=== PATIENT | female | born 1965 | race Caucasian/White ===

== ENCOUNTER 2019-01-17 00:16 | Inpatient (IN) ==
[2019-01-18] MEDS ORDERED: Acetaminophen 325 MG TABLET PO PRN ×2 (00:26→04:15)
[2019-01-18] MEDS ORDERED: Naloxone 0.4 MG/ML INJ IVP PRN ×2 (00:26→04:15)
[2019-01-18] MEDS ORDERED: *HR* OxyCODONE Immed Rel 5 MG TABLET PO PRN ×3 (00:26→04:15)
[2019-01-18] MEDS ORDERED: 0.9 % Sodium Chloride 1,000 ML IVC SCH ×2 (00:30→04:15)
--- NOTE | 2019-01-18 00:32 | Internal Med History&Physical ---
<ColladoTrudiLj Lucia - Last Filed: 01/18/19 00:30> Date of Encounter: 01/18/19 Time of Encounter: 00:30 Internal Medicine - H&P: HPI Chief complaint: Kidney stone Admitted From: Hospital to Hospital Transfer Plans for Post Hospital Care: Home History of present illness: Ms. Hoyos is a 53 year old female with a past medical history of type 2 diabetes mellitus, calcium oxalate kidney stones, hypertension, fibromyalgia, status post ablation for PSVT. Surgical history of partial hysterectomy and cholecystect jayna. She was transferred from [facility] to [facility] ICU. She states that yesterday afternoon she began having left-sided flank pain radiating to the suprapubic region, associated with nausea and vomiting, fever and chills. She denies any associated dysuria or urinary frequency or hesitancy. She denies chest pain or shortness of breath, lightheadedness or dizziness, weakness or falls. She presented to the [place] ER where CT scan demonstrated left obstructing ureterolithiasis just past the UPJ, hydroureter and hydronephrosis, with perinephric stranding. Labs demonstrated leukocytosis of 23, elevated lactic acid of 2.2, urine positive for leukocyte esterase and white blood cells, vitals demonstrated fever of 102 and tachycardia in the 130s. She was initially treated with morphine for pain control, Zofran for nausea control, 2 g IV Rocephin and 2 L normal saline. She was transferred to [facility] ICU in stable condition. Internal Medicine - H&P: Meds Allergy/AdvReac Type Severity Reaction Status Date / Time No Known Allergies Allergy Verified 01/18/19 01:06 All Systems PM: A 10-system review of systems was performed and is negative for pertinent findi ngs except as documented above in the HPI. - Constitutional General appearance: Present: A&O X 3, no acute distress, answers questions appropriately Exam: Alert and oriented, normal affect, no acute distress Cranial nerves II through XII intact, no focal deficits Pupils equal and reactive to light, extraocular movements intact Heart in tachycardic rate and regular rhythm without murmur or gallop auscultated Lungs clear to auscultation bilaterally without adventitial noted Abdomen soft and nontender with normal bowel sounds noted, mild left flank tenderness Motor 5/5 in all 4 extremities, sensation intact, 1+ bilateral lower extremity pitting edema Skin warm and dry without rash, bruising, bleeding noted - Assessment and Plan (1) Sepsis Current Visit: Yes Status: Acute Assessment and plan: Patient was transferred from [place] for possible sepsis secondary to pyelonephritis tertiary to ureterolithiasis She did meet SIRS criteria of tachycardia and fever with imaging concerning for pyelonephritis Prior to transfer she was given 2 g IV Rocephin and 2 L IV fluid, Zofran for nausea control and morphine for pain control On arrival the patient was afebrile, mildly tachycardic, otherwise hemodynami pebbles stable and in no acute distress Urology is consulting and planning to take the patient to the OR immediately for ureteral stenting We will continue normal saline fluids, Zofran for nausea control and morphine for pain control Repeat urine with reflex culture is pending, patient is already covered with IV Rocephin After surgery patient can likely be transferred to general medical floor Qualifiers: Sepsis type: sepsis due to unspecified organism Qualified Code(s): A41.9 - Sepsis, unspecified organism (2) Pyelonephritis Current Visit: Yes Status: Acute Assessment and plan: As above (3) Ureterolithiasis Current Visit: Yes Status: Acute Assessment and plan: As above (4) Diabetes Current Visit: No Status: Chronic Assessment and plan: Every 6 hours Accu-Cheks and low-dose sliding scale insulin correction protocol This can be changed to before meals at bedtime once the patient is given a diabetic diet Qualifiers: Diabetes mellitus type: type 2 Diabetes mellitus prison insulin use: without moth exterminator use Diabetes mellitus complication status: without com plication Qualified Code(s): E11.9 - Type 2 diabetes mellitus without com plications (5) DVT prophylaxis Current Visit: Yes Status: Acute Assessment and plan: 5000 units subcutaneous heparin every 8 hours - Time Spent With Patient Total time spent is greater than 50% in coordination of care (as documented) at patient's floor/unit and/or counseling patient: GrahamReyna Fair - Last Filed: 01/18/19 02:51> Date of Encounter: 01/18/19 Past Med Surg Social Fam HX - Family History Mother Age: 78 Living Status: Age at : 78 Cause of : lung CA Hx Family Cardiac Disorders: No Hx Family Respiratory Disorders: No Hx Family Cancer: Yes Father Age: 69 Living Status: Age at : 69 Cause of : colon CA Hx Family Cancer: Yes Daughter Living Status: Still Living Hx Family Genitourinary Disorders: Yes (Kidney stones) All Systems PM: A 10-system review of systems was performed and is negative for pertinent findings except as documented above in the HPI. - Constitutional Vitals: Temp Pulse Resp BP Pulse Ox 98.9 F 95 17 127/73 95 01/18/19 02:15 01/18/19 02:15 01/18/19 02:15 01/18/19 02:15 01/18/19 02:15 Internal Med - H&P Results - Labs CBC & Chem 7: 01/18/19 01:11 01/18/19 01:11 Labs: Short CBC 01/18/19 Range/Units 01:11 WBC 24.9 H (4.3-11.1) K/mcL Hgb 11.1 L (11.5-15.4) g/dL Hct 35.1 L (35.3-44.9) % Plt Count 228 (140-400) K/mcL Neutrophils # 20.4 H (1.6-8.9) K/mcL BMP 01/18/19 01:11 Sodium 138 Potassium 3.5 Chloride 104 Carbon Dioxide 25 BUN 12 Creatinine 0.69 Glucose 153 H Calcium 9.1 - Time Spent With Patient Total time spent is greater than 50% in coordination of care (as documented) at patient's floor/unit and/or counseling patient: - Attending Attestation I performed a history and physical exam of the patient and discussed management with the resident. I reviewed the resident's note and agree with the documented findings and plan of care. Family history reviewed and found non-contributory. Keke Hoyos is a 53-year-old obese woman with diabetes and recurrent kidney stones who presented to [facility] emergency room with the complaint of worsening abdominal and flank pain with radiation to her groin found to have an obstructive stone causing hydronephrosis, notable leukocytosis and tachycardia consistent with sepsis syndrome. She was transferred to our medical unit for further care and evaluation. She was seen immediately by urology who took her to the operating room for stent placement. She has remained clinically and hemodynamically stable. We will continue fluid resuscitation, analgesics as needed, empiric antibiotics should be continued after urine and blood cultures are sent. Transfer to medical floor. MARIAMA TREVINO.
--- NOTE | 2019-01-18 00:35 | Anesthesia Evaluation PreOp ---
Date of Encounter: 01/18/19 Time of Encounter: 00:33 - Past History Planned Operation: Cystoscopy, Insertuion Left Ureteral Stent Cardiac History: HTN, Arrhythmia (s/p ablation for SVT 10 years ago) Pulmonary History: Denies Any Significant HX FASHION MARKETER History: Denies Any Significant HX Other Medical History: Renal (Hydronephrosis), Diabetes Type II, GERD (Hiatal Hernia), Other (Fibromyalgia, [place] BMI-49) Anesthesia History: No Prior Anesthetic Complications, Past Anesthesia (Hyst) : No Alcohol Use: none Drug use: none Medications and Allergies Allergy/AdvReac Type Severity Reaction Status Date / Time No Known Allergies Allergy Verified 01/18/19 01:06 - Meds/Allergy Pre-op Review Medications Reviewed: Yes Allergies Reviewed: Yes Beta Blockers on Current Med List: Yes If Beta Blockers taken, Date/Time (Last Dose taken): Last Night (01/17/2019) Anesthesia Results - Labs Labs demonstrated leukocytosis of 23, elevated lactic acid of 2.2, urine positive for leukocyte esterase and white blood cells, vitals demonstrated fever of 102 and tachycardia in the 130s Anesthesia Exam NPO (# of Hours): > 8 hrs Pain Scale: 0 Pain Scale Used: Numeric (1 - 10) - HEENT Pupil (Motor): Pupils equal, EOMI Mallampati: I Teeth: Normal Oral Opening: Greater than 3 - FASHION MARKETER LOC: Oriented FASHION MARKETER Motor: Normal RUE, Normal LUE, Normal RLE, Normal LLE, Normal Face FASHION MARKETER Sensory: Normal: RUE, LUE, RLE, LLE, Face - Cardiac Rhythm: Regular Murmur: None JVD: No Carotid Bruit: No - Pulmonary Breath Sounds: bilateral Clear Respiratory Effort: Symmetrical Anesthesia Assess/Plan ASA Score: 3 Level of consciousness: Cooperative Anesthetic Plan: General Autologous Blood: Yes Monitoring Plan: Standard Monitors Recovery Plan: PACU
[2019-01-18] MEDS ORDERED: *HR* FentaNYL (PF) 100 MCG/2 ML VIAL ONE (00:42)
[2019-01-18] MEDS ORDERED: Ondansetron 4 MG/2 ML VIAL ONE (00:43)
[2019-01-18] MEDS ORDERED: *HR* Propofol 200 MG/20 ML VIAL IVP ONE (00:43)
[2019-01-18] MEDS ORDERED: *HR* Rocuronium Bromide 50 MG/5 ML VIAL ONE (00:43)
[2019-01-18] MEDS ORDERED: Ketorolac 30 MG/ML VIAL ONE (00:43)
[2019-01-18] MEDS ORDERED: Lidocaine -MPF 2% 2 ML VIAL ONE (00:43)
[2019-01-18] MEDS ORDERED: Dexamethasone 4 MG/ML VIAL ONE (00:43)
[2019-01-18] MEDS ORDERED: *HR* Succinylcholine 200 MG/10 ML VIAL IVP ONE (00:43)
[2019-01-18] MEDS ORDERED: Dextrose Gel 15 GM/37.5 ML TUBE PO PRN ×4 (00:49→04:15)
[2019-01-18] MEDS ORDERED: D5% in Water 1,000 ML IVC PRN ×2 (00:49→04:15)
[2019-01-18] MEDS ORDERED: *HR* Dextrose 50 % in Water (Syg) 50 ML SYRINGE IVP PRN ×2 (00:49→04:15)
--- NOTE | 2019-01-18 00:54 | Urology - Consult Note ---
Date of Encounter: 01/18/19 Time of Encounter: 00:52 - Assessment and Plan (1) Hydronephrosis Current Visit: Yes Status: Acute Assessment and plan: Secondary to 6.5 x 4 mm left proximal ureteral calculus. Pain symptomatically with intermittent pain nausea and fevers. Found to have elevated white count of 22 with lactated 2.2. Discussed indications for urgent urinary diversion. Plan: Urgent urinary diversion via ureteral stent placement Qualifiers: Hydronephrosis type: with ureteral calculous obstruction Qualified Code(s): N13.2 - Hydronephrosis with renal and ureteral calculous obstruction (2) Sepsis Current Visit: Yes Status: Acute Assessment and plan: Positive UA, white count 22, lactate 2.2, fevers up to 102 in setting of left proximal ureteral calculus with hydronephrosis. Given Rocephin at outside facility prior to transfer. Plan: Urgent urinary diversion by stent placement. Antibiotic management as per ICU staff. Qualifiers: Sepsis type: sepsis due to unspecified organism Qualified Code(s): A41.9 - Sepsis, unspecified organism (3) Ureterolithiasis Current Visit: Yes Status: Acute Assessment and plan: 6.5 x 4 left proximal ureteral calculus. Unsafe to address stone definitively at this time due to active UTI with emerging urosepsis. Plan: Urgent urinary diversion. Staged definitive address of stone once active infection resolved. (4) Nephrolithiasis Current Visit: Yes Status: Acute Assessment and plan: History of 2 prior stones 1 treated with ureteroscopy and the second with lithotripsy. Patient now transferred from outside facility secondary to urosepsis from obstructing left proximal ureteral calculus. CT images reviewed and interpreted independently and show multiple additional 1-2 mm stones in the left kidney as well as a 1-2 mm stone in the right kidney. Discussed findings with patient and indications for metabolic evaluation for future stone prevention. Plan: 48 hour urine will be arranged as outpatient. Urology CN:HPI Consult date: 01/18/19 Requesting physician: Reyna Fair History of present illness: Ms. Hoyos is a 53 year old female with a past medical history of type 2 diabetes mellitus, calcium oxalate kidney stones, hypertension, fibromyalgia, status post ablation for PSVT. Surgical history of partial hysterectomy and cholecystectomy. She was transferred from [facility] to [facility] ICU. She states that yesterday afternoon she began having left- sided flank pain radiating to the suprapubic region, associated with nausea and vomiting, fever and chills. She denies any associated dysuria or urinary frequency or hesitancy. She denies chest pain or shortness of breath, lightheadedness or dizziness, weakness or falls. She presented to the [place] ER where CT scan demonstrated left obstructing ureterolithiasis just past the UPJ, hydroureter and hydronephrosis, with perinephric stranding. Labs demonstrated leukocytosis of 23, elevated lactic acid of 2.2, urine positive for leukocyte esterase and white blood cells, vitals demonstrated fever of 102 and tachycardia in the 130s. She was initially treated with morphine for pain control, Zofran for nausea control, 2 g IV Rocephin and 2 L normal saline. She was transferred to [facility] ICU in stable condition. Discussed transfer with outside facility ER attending as well as patient via phone. Discussed need for urgent urinary diversion due to emerging urosepsis in the setting of obstructing left ureteral calculus. Past Med Surg Social Fam HX - Past Medical History Medical history: diabetes, hypertension - Past Surgical History Surgical History: ureteral stent - Social History Alcohol use: none Drug use: none - Family History Daughter Living Status: Still Living Hx Family Genitourinary Disorders: Yes (Kidney stones) Review of Systems - Constitutional chills, fever(s) - EENT Nose, mouth and throat: no dry mouth, no sore throat - Cardiovascular no chest pain, no diaphoresis - Respiratory no cough, no dyspnea - Gastrointestinal abdominal pain, nausea - Genitourinary Genitourinary: no dysuria, no hematuria - Musculoskeletal no muscle weakness, no numbness - Integumentary no lesions, no rash - Neurological no confusion, no sensory deficit - Psychiatric no anxiety, no confusion - Hematologic/Lymphatic no easy bleeding, no easy bruising - Allergic/Immunologic no throat swelling, no wheezing Exam - General physical appearance Present: well developed, well nourished, no distress - Eyes Present: normal ocular movement - ENT Present: normal nares, normal mucosa - Neck Present: trachea midline - Respiratory Present: normal respiratory effort - Abdomen Abdomen: Present: non tender - Integumentary Present: no rash, no growths, no abnormal pigmentation - Neurologic Present: normal coordination - Musculoskeletal Present: other (Normal posture) Urology Results - Labs All other labs normal. - Imaging CT scan - abdomen: image reviewed CT scan - pelvis: image reviewed (CT images reviewed and interpreted independently.) Consult Discharge Plan - Plan Referrals: Lissa Helm, CIRCUS TRAINER [Primary Care Provider] -
[2019-01-18] MEDS ORDERED: *HR* HYDROmorphone (PF) 1 MG/ML SYRINGE IVP PRN (00:55)
[2019-01-18] MEDS ORDERED: *HR* Promethazine 25 MG/ML VIAL IVP PRN (00:55)
[2019-01-18] MEDS ORDERED: Ondansetron 4 MG/2 ML VIAL IVP ONE (00:55)
[2019-01-18 01:40] LABS: Basophils # 0.1 K/mcL (0.0-0.2); Basophils % 0.4 %; Eosinophils # 0.1 K/mcL (0.0-0.6); Eosinophils % 0.6 %; Hematocrit 35.1 % (35.3-44.9); Hemoglobin 11.1 g/dL (11.5-15.4); Immature Granulocytes % 0.6 % (0-4); Lymphocytes # 2.4 K/mcL (0.6-4.6); Lymphocytes % 9.7 %; Mean Corpuscular HGB Conc 31.6 g/dL (31.6-35.5); Mean Corpuscular Hemoglobin 28.7 pg (28.0-33.3); Mean Corpuscular Volume 90.7 fL (83.0-100.0); Mean Platelet Volume 9.5 fL (9.4-12.4); Monocytes # 1.7 K/mcL (0.0-1.3); Neutrophils # 20.4 K/mcL (1.6-8.9); Platelet Count 228 K/mcL (140-400); Red Blood Count 3.87 M/mcL (3.82-4.97); Red Cell Distribution Width 13.4 % (11.5-14.5); Segmented Neutrophils % 81.7 %; White Blood Count 24.9 K/mcL (4.3-11.1)
[2019-01-18 01:41] LABS: BUN/Creatinine Ratio 17 (6-26); Blood Urea Nitrogen 12 mg/dL (6-20); Calcium 9.1 mg/dL (8.6-10.3); Carbon Dioxide 25 mEq/L (23-29); Chloride 104 mEq/L (98-107); Glucose 153 mg/dL (70-105); Osmolality,Calculated 289 (280-300); Potassium 3.5 mEq/L (3.5-5.1); Sodium 138 mEq/L (136-145); eGFR For African Americans > 60 (> 60); eGFR For Non-African Americans > 60 (> 60)
[2019-01-18 01:52] LABS: INR 1.1; Prothrombin Time 12.4 Seconds (9.4-12.1)
--- NOTE | 2019-01-18 02:04 | Operative Note ---
Date of procedure: 01/18/19 Pre-op diagnosis: Left hydronephrosis Post-op diagnosis: same Procedure: Cystoscopy, left retrograde ureteropyelography with intraoperative interpretation of radiographic images in real time by surgeon to facilitate procedure, left ureteral double-J stent placement Implants: 4.8 x 24 left double-J stent Complications: None Anesthesia: GETA Surgeon: Rashid Singleton Was there an data analysis assistant present: No Estimated blood loss (cc): 0 Specimen: none Condition: stable Disposition: PACU Procedure in Detail: The patient was brought to the operating theater placed on table in supine position. The patient identified by name and administered a general anesthetic. The patient placed in dorsal lithotomy prepped and draped in normal sterile fashion. A cystoscope was inserted into the urethral meatus and advanced toward the bladder under direct visualization. There were no mucosal abnormalities of the bladder or urethra. An open-ended catheter was placed the tip of the left ureteral orifice and with gentle injection of contrast a retrograde pyelogram was performed. Intraoperative interpretation of radiographic images in real time by surgeon revealed suggestion of filling defect in the proximal ureter with mild to moderate [place] above this level consistent with CT finding of proximal ureteral stone. Based upon this finding along with the patient's active UTI and emerging urosepsis stent placement was indicated. Under fluoroscopic guidance a Glidewire was advanced into the left renal pelvis. Over the Glidewire a 4.8 x 24 left double-J stent was advanced. Once the stent was felt to be in good position the Glidewire was removed. Proximal distal ends of the stent were confirmed in good position fluoroscopically. The patient's bladder was drained of irrigant and this ended the operative procedure.
[2019-01-18] MEDS ORDERED: Albuterol 2.5 MG/3 ML NEBULIZER ONE (02:26)
[2019-01-18 04:52] LABS: Basophils # 0.1 K/mcL (0.0-0.2); Basophils % 0.4 %; Eosinophils # 0.1 K/mcL (0.0-0.6); Eosinophils % 0.4 %; Hematocrit 37.6 % (35.3-44.9); Hemoglobin 11.9 g/dL (11.5-15.4); Immature Granulocytes % 0.8 % (0-4); Lymphocytes # 1.8 K/mcL (0.6-4.6); Lymphocytes % 7.7 %; Mean Corpuscular HGB Conc 31.6 g/dL (31.6-35.5); Mean Corpuscular Hemoglobin 28.9 pg (28.0-33.3); Mean Corpuscular Volume 91.3 fL (83.0-100.0); Mean Platelet Volume 9.5 fL (9.4-12.4); Monocytes # 1.1 K/mcL (0.0-1.3); Monocytes % 4.5 %; Neutrophils # 20.5 K/mcL (1.6-8.9); Platelet Count 236 K/mcL (140-400); Red Blood Count 4.12 M/mcL (3.82-4.97); Red Cell Distribution Width 13.3 % (11.5-14.5); Segmented Neutrophils % 86.2 %; White Blood Count 23.8 K/mcL (4.3-11.1)
[2019-01-18 05:13] LABS: BUN/Creatinine Ratio 17 (6-26); Blood Urea Nitrogen 12 mg/dL (6-20); Calcium 9.5 mg/dL (8.6-10.3); Carbon Dioxide 26 mEq/L (23-29); Chloride 104 mEq/L (98-107); Glucose 220 mg/dL (70-105); Osmolality,Calculated 295 (280-300); Potassium 3.9 mEq/L (3.5-5.1); Sodium 139 mEq/L (136-145); eGFR For African Americans > 60 (> 60); eGFR For Non-African Americans > 60 (> 60)
[2019-01-18] MEDS ORDERED: *HR* Heparin 5,000 UNIT/ML VIAL SQ SCH ×2 (06:00)
[2019-01-18] MEDS ORDERED: Insulin LISPRO 300 UNITS/3 ML VIAL SQ SCH ×4 (06:00→21:00)
[2019-01-18] MEDS ORDERED: Ondansetron 4 MG/2 ML VIAL IVP SCH ×2 (06:00)
--- NOTE | 2019-01-18 06:57 | Anesthesia Evaluation Post Op ---
Date of Encounter: 01/18/19 Time of Encounter: 06:56 - Vital Signs Vital Signs: Vital Signs/O2 Sat, Most Current Temp Pulse Resp BP Pulse Ox 98.0 F 82 16 145/83 91 01/18/19 04:38 01/18/19 05:00 01/18/19 05:00 01/18/19 03:30 01/18/19 05:00 - Lungs Lungs: Clear Ascult./Percussion - Airway Airway: Non-obstructed - Cardiovascular Regular Rate - Mental Status Mental Status: Alert & Oriented, Answers Appropriately - Pain Pain Scale: 0 Pain Scale used: Numeric (1 - 10) - Nausea Vomiting Nausea Vomiting: Not Present - Hydration Hydration: Tolerates oral liquids, Has not voided - Discharge PostOp Status: Transfer Patient to floor
--- NOTE | 2019-01-18 07:24 | Urology Progress Note ---
Date of Encounter: 01/18/19 Time of Encounter: 07:21 - Assessment and Plan (1) Hydronephrosis Current Visit: Yes Status: Acute Assessment and plan: Doing well s/p stent placement for obstructing left ureteral calculus with hydronephrosis, uti and urosepsis. Current AF, VSS, WBC 23. Tolerating stent well. Plan: My office will arrange for outpatient f/u for definitive management of ureteral calculus once infection is resolved. Qualifiers: Hydronephrosis type: with ureteral calculous obstruction Qualified Code(s): N13.2 - Hydronephrosis with renal and ureteral calculous obstruction (2) Sepsis Current Visit: Yes Status: Acute Qualifiers: Sepsis type: sepsis due to unspecified organism Qualified Code(s): A41.9 - Sepsis, unspecified organism (3) Ureterolithiasis Current Visit: Yes Status: Acute (4) Nephrolithiasis Current Visit: Yes Status: Acute Objective Initial Vital Signs Temp Pulse Resp BP Pulse Ox 98.5 F 105 18 120/73 95 01/18/19 00:05 01/18/19 00:05 01/18/19 00:05 01/18/19 00:05 01/18/19 00:05 - Labs 01/18/19 04:30 01/18/19 04:30 Diabetes panel 01/18/19 01/18/19 Range/Units 01:11 04:30 Sodium 138 139 (136-145) mEq/L Potassium 3.5 3.9 (3.5-5.1) mEq/L Chloride 104 104 (98-107) mEq/L Carbon Dioxide 25 26 (23-29) mEq/L BUN 12 12 (6-20) mg/dL Creatinine 0.69 0.71 (0.60-1.20) mg/dL Glucose 153 H 220 H (70-105) mg/dL Calcium 9.1 9.5 (8.6-10.3) mg/dL Calcium panel 01/18/19 01/18/19 Range/Units 01:11 04:30 Calcium 9.1 9.5 (8.6-10.3) mg/dL Pituitary panel 01/18/19 01/18/19 Range/Units 01:11 04:30 Sodium 138 139 (136-145) mEq/L Potassium 3.5 3.9 (3.5-5.1) mEq/L Chloride 104 104 (98-107) mEq/L Carbon Dioxide 25 26 (23-29) mEq/L BUN 12 12 (6-20) mg/dL Creatinine 0.69 0.71 (0.60-1.20) mg/dL Glucose 153 H 220 H (70-105) mg/dL Calcium 9.1 9.5 (8.6-10.3) mg/dL Adrenal panel 01/18/19 01/18/19 Range/Units 01:11 04:30 Sodium 138 139 (136-145) mEq/L Potassium 3.5 3.9 (3.5-5.1) mEq/L Chloride 104 104 (98-107) mEq/L Carbon Dioxide 25 26 (23-29) mEq/L BUN 12 12 (6-20) mg/dL Creatinine 0.69 0.71 (0.60-1.20) mg/dL Glucose 153 H 220 H (70-105) mg/dL Calcium 9.1 9.5 (8.6-10.3) mg/dL Consult Discharge Plan - Plan Referrals: Lissa Helm, MRI TECHNICIAN [Primary Care Provider] -
[2019-01-18 07:50] VITALS: BP 142/83
[2019-01-18] MEDS ORDERED: cefTRIAXone 1,000 MG in Water for inj. (sterile) 20 ML 10 ML IVPB SCH ×2 (09:00)
--- NOTE | 2019-01-18 10:01 | Discharge Summary ---
- NOTES TO OUTPATIENT PROVIDER Notes to Outpatient Provider: Complete a course of antibiotics. Follow-up with urology as outpatient Orders not resulted at time of discharge: Pending orders 01/18/19 00:29 Urinalysis Reflex Cult & Micro [URIN] Stat 01/18/19 04:30 Culture,Blood [BC] Routine Date of Encounter: 01/18/19 Time of Encounter: 08:15 - Discharge Diagnosis (1) Sepsis Priority: Primary Status: Acute Qualifiers: Sepsis type: sepsis due to unspecified organism Qualified Code(s): A41.9 - Sepsis, unspecified organism (2) Pyelonephritis Priority: Secondary Status: Acute (3) Hydronephrosis Priority: Secondary Status: Acute Qualifiers: Hydronephrosis type: with ureteral calculous obstruction Qualified Code(s): N13.2 - Hydronephrosis with renal and ureteral calculous obstruction (4) Nephrolithiasis Priority: Secondary Status: Acute (5) Diabetes Priority: Secondary Status: Chronic Qualifiers: Diabetes mellitus type: type 2 Diabetes mellitus halfway insulin use: without typist use Diabetes mellitus complication status: without complication Qualified Code(s): E11.9 - Type 2 diabetes mellitus without complications Hospital course: Ms. Hoyos is a 53 year old female with history of diabetes, nephrolithiasis, hypertension, who was admitted overnight due to sepsis secondary to L pyelonephritis and hydronephrosis from obstructing left ureterolithiasis. No end organ damage. Underwent urgent left ureteral stent placement uneventfully and with significant clinical improvement. Had leukocytosis of 25 on presentation that slightly downtrended after intervention and IV abx. She was strongly recommended to stay inpatient for monitoring given leukocytosis and pending blood culture results but pt adamantly requested to be discharged as she feels great. Informed her that this is not the ideal situation to be discharged in and also of the risk of worsening sepsis which can potentially lead to to which she verbalized understanding. However, given the clinical improvement after urological intervention and IV Rocephin, it was not completely unreasonable to discharge her home on PO Abx and would do so instead of asking her to sign out AMA to respect her wish. She is advised to return to the ED or contact Urologist if pain recurs or develops fever/chills, N/V, or flank pain. She will follow up with Urology as outpatient. Discharge discussed with: patient, nurse, documentation consultant - Time Spent with Patient Total time spent providing and/or coordinating discharge services: 33 mins. - Discharge Medications Prescriptions: New Cefdinir [Omnicef] 300 mg PO BID 10 Days #20 capsule Home Medications: Cefdinir [Omnicef] 300 mg PO BID 10 Days #20 capsule 01/18/19 [Rx] Allergies/Adverse Reactions: Allergy/AdvReac Type Severity Reaction Status Date / Time No Known Allergies Allergy Verified 01/18/19 01:06 Date of admission: 01/18/19 00:22 Primary care physician: Lissa Helm CNP - Constitutional Vitals: Temp Pulse Resp BP Pulse Ox 97.7 F 74 16 142/83 95 01/18/19 07:49 01/18/19 07:49 01/18/19 07:49 01/18/19 07:49 01/18/19 07:49 General appearance: Present: A&O X 3, no acute distress, answers questions appropriately Exam: General: Alert and oriented, not in acute distress. Cardiovascular:Normal S1 & S2, No JVD. Pulse regular. Lungs: clear to auscultation, no wheezes/rales Abdomen:Soft, non-tender, no rigidity. : No CVA tenderness Extremities:No deformity or swelling Neurological:Normal cognition and motor skills. Non-focal - Patient Status Disposition: Home, Self-Care Condition: Fair Functional capacity at discharge: independent ambulation Overall status at discharge: patient is progressing back to baseline - Discharge Instructions Instructions: Urinary Tract Infection in Women (DC), Sepsis (DC), Diabetes Mellitus Type 2 in Adults (DC) Follow Up With: Lissa Helm CNP [Primary Care Provider] - Rashid Singleton [Partnered Physician] - - Diet and Activity Activity: resume usual activities as tolerated Diet: diabetic diet
== END 2019-01-18 12:10 | disposition home or self-care (01) | DRG 854 ==
LOC: ICNU 01-18 00:22 → SUATTDRO 01-18 00:22 → 3ANU 01-18 06:19
PROVIDERS: ADMIT Internal Medicine; ATTEND Internal Medicine

== ENCOUNTER 2019-01-19 18:59 | Observation (INO) ==
[2019-01-19] MEDS ORDERED: *HR* FentaNYL (PF) 100 MCG/2 ML VIAL IVP ONE (19:52)
[2019-01-19] MEDS ORDERED: Ondansetron 4 MG/2 ML VIAL IVP STA (19:52)
[2019-01-19 20:11] LABS: Bilirubin,Urine Negative (Negative); Blood,Urine Large (Negative); Clarity,Urine Cloudy (Clear); Color,Urine Orange (Yellow); Glucose,Urine (UA) Normal (Normal); Ketones,Urine Negative (Negative); Leukocyte Esterase,Urine Large (Negative); Nitrite,Urine Positive (Negative); Protein,Urine 100 mg/dL (Neg-Trace); Specific Gravity,Urine 1.025 (1.010-1.025); Urobilinogen,Urine Normal (Normal)
[2019-01-19 20:13] LABS: Bacteria,Urine None Seen per hpf (None-Few); Hyaline Casts,Urine None Seen per lpf (None-Few); RBC,Urine TNTC per hpf (0-3); Squamous Epithelial Cell,Urine Many per lpf (None-Few); WBC,Urine 15-30 per hpf (0-3)
[2019-01-19 20:33] LABS: Basophils # 0.1 K/mcL (0.0-0.2); Basophils % 0.5 %; Eosinophils # 0.3 K/mcL (0.0-0.6); Eosinophils % 1.6 %; Hematocrit 36.8 % (35.3-44.9); Hemoglobin 11.9 g/dL (11.5-15.4); Lymphocytes # 5.8 K/mcL (0.6-4.6); Mean Corpuscular HGB Conc 32.3 g/dL (31.6-35.5); Mean Corpuscular Hemoglobin 29.2 pg (28.0-33.3); Mean Corpuscular Volume 90.4 fL (83.0-100.0); Mean Platelet Volume 9.2 fL (9.4-12.4); Monocytes # 1.4 K/mcL (0.0-1.3); Monocytes % 6.7 %; Neutrophils # 13.5 K/mcL (1.6-8.9); Platelet Count 316 K/mcL (140-400); Red Blood Count 4.07 M/mcL (3.82-4.97); Red Cell Distribution Width 13.5 % (11.5-14.5); Segmented Neutrophils % 63.2 %; White Blood Count 21.3 K/mcL (4.3-11.1)
[2019-01-19 20:56] LABS: BUN/Creatinine Ratio 26 (6-26); Blood Urea Nitrogen 18 mg/dL (6-20); Calcium 9.7 mg/dL (8.6-10.3); Carbon Dioxide 27 mEq/L (23-29); Chloride 105 mEq/L (98-107); Glucose 51 mg/dL (70-105); Osmolality,Calculated 291 (280-300); Potassium 3.5 mEq/L (3.5-5.1); Sodium 141 mEq/L (136-145); eGFR For African Americans > 60 (> 60); eGFR For Non-African Americans > 60 (> 60)
--- NOTE | 2019-01-19 21:09 | Emergency Department Note ---
Disposition Clinical Impression: Pyelonephritis Disposition: Admitted As Inpatient Forms: ED Satisfaction Letter Time of Disposition: 21:58 General Adult HPI - General Chief complaint: ED Fever Stated complaint: fevers Time Seen by Provider: 01/19/19 19:19 Source: patient Mode of arrival: ambulatory Limitations: no limitations Nursing Notes Reviewed: Yes Vital Signs Reviewed: Yes - History of Present Illness HPI Narrative: 53 yo female with recent discharge from the hospital after left ureteral stent placement for kidney stone and [facility]oneph[facility] of [facility] and worsening flank pain. Patient states that she requested to go home because she missed her family and her animals and was told to come back to the emergency room if she developed fevers again. Today she had a temperature of 101 degrees Fahrenheit and has had worsening left flank pain. She denies chest pain, shortness of breath, abdominal pain, nausea and vomiting, dysuria. She has been taking antibiotics and Pyridium at home as well as Flomax. Pain Scale: 5 - Related Data Home Medications Medication Instructions Recorded Confirmed Duloxetine HCl [Cymbalta] 60 mg PO BID 01/19/19 01/19/19 Exenatide Microspheres [Bydureon 2 mg SQ MO 01/19/19 01/19/19 Pen] Gabapentin [Neurontin] 600 mg PO TID 01/19/19 01/19/19 Ibuprofen 800 mg PO TID 01/19/19 01/19/19 Lansoprazole [Prevacid] 30 mg PO DAILY 01/19/19 01/19/19 Losartan Potassium [Cozaar] 100 mg PO DAILY 01/19/19 01/19/19 Metoprolol Tartrate [Lopressor] 50 mg PO BID 01/19/19 01/19/19 Oxybutynin [Ditropan] 5 mg PO TID 01/19/19 01/19/19 Tamsulosin HCl [Flomax] 0.4 mg PO BID 01/19/19 01/19/19 Tizanidine HCl [Zanaflex] 8 mg PO HS 01/19/19 01/19/19 Tramadol HCl [Ultram] 100 mg PO TID PRN 01/19/19 01/19/19 Previous Rx's Medication Instructions Recorded Cefdinir [Omnicef] 300 mg PO BID 10 Days #20 capsule 01/18/19 Phenazopyridine HCl [Pyridium] 200 mg PO TIDAC 4 Days #12 tab 01/18/19 Allergies Allergy/AdvReac Type Severity Reaction Status Date / Time No Known Allergies Allergy Verified 01/19/19 19:01 All systems ED: reviewed and negative except as stated. Review of Systems: As Per HPI Constitutional: Reports: fever. Denies: weakness Cardiovascular: Denies: chest pain, palpitations Respiratory: Denies: cough, dyspnea, wheezes Gastrointestinal: Reports: abdominal pain. Denies: nausea, vomiting, diarrhea Genitourinary: Denies: dysuria, hematuria Musculoskeletal: Denies: back pain, neck pain Integumentary: Denies: rash Neurological: Denies: headache Endocrine: Reports: fatigue Past Medical History - Past Medical History Attestation: Yes The following information was validated with the patient. Source: patient Medical history: Reports: diabetes, hypertension Surgical history: Reports: ureteral stent Psychiatric history: Reports: depression - Social History Smoking Status: Never smoker Smokeless Tobacco Status: No Alcohol use: Reports: none Drug use: Reports: none Physical Exam - General Limitations: no limitations General appearance: alert, in no apparent distress - Head Head exam: atraumatic, normocephalic - Eye Eye exam: Present: normal appearance, EOMI - ENT ENT exam: normal exam, normal oropharynx - Neck Neck exam: Present: normal inspection. Absent: tenderness, lymphadenopathy - Chest Chest inspection: Present: normal inspection. Absent: tenderness - Respiratory Respiratory exam: Present: normal lung sounds bilaterally. Absent: wheezes - Cardiovascular Cardiovascular exam: Present: normal rhythm, tachycardia - Abdominal Exam Abdominal exam: Present: soft, Non-Tender. Absent: distention, guarding, rebound, rigidity Abdominal tenderness: Absent: suprapubic - Extremities Exam Extremities exam: Present: normal inspection. Absent: tenderness, pedal edema - Back Exam Back exam: Present: CVA tenderness (L). Absent: CVA tenderness (R) - Neurological Exam Neurological exam: Present: alert, oriented X3 - Psychiatric Psychiatric exam: Present: normal affect, normal mood - Skin Skin exam: Present: warm, dry, intact Course Vital Signs Temperature 98.2 F 01/19/19 19:01 Pulse Rate 105 01/19/19 19:01 Respiratory Rate 16 01/19/19 19:01 Blood Pressure 163/96 01/19/19 19:01 O2 Sat by Pulse Oximetry 96 01/19/19 19:01 Temperature 98.2 F 01/19/19 19:19 Pulse Rate 109 01/19/19 21:21 Respiratory Rate 17 01/19/19 21:21 Blood Pressure 159/81 01/19/19 21:21 O2 Sat by Pulse Oximetry 99 01/19/19 21:21 Oxygen Delivery Oxygen Delivery Room Air Medical Decision Making - MDM Narrative Medical decision making narrative: Patient was discharged from the hospital yesterday returns emergency room with recurrence of fevers and worsening left-sided flank pain. We will run basic lab work and a urinalysis as well as a lactic and treat the patient's pain. 2119 - patient has an elevated white count of 21 which was decreased since discharge from the hospital yesterday. Lactate is 1.0. Urine shows signs of infection with elevated nitrites and leukocyte esterase. Glucose is 51. Patient will be admitted to the hospital for further treatment with IV antibiotics and to be seen by urology again and she still have a stone in place. She thinks that she can eat something so she was given 10 g and orange juice for her blood sugar. She will also be given a dose of Rocephin here as her urine culture has not resulted but preliminary is gram-negative rods. 2154 - patient has been accepted by the hospitalist at this time. - Medical Records Medical records reviewed: Yes I reviewed the patient's medical records. - Lab Data Lab results reviewed: Yes I reviewed the patient's lab results. Result diagrams: 01/19/19 20:18 01/19/19 20:18 Lab Results 01/19/19 01/19/19 01/19/19 Range/Units 19:09 20:18 20:18 WBC 21.3 H (4.3-11.1) K/mcL RBC 4.07 (3.82-4.97) M/mcL Hgb 11.9 (11.5-15.4) g/dL Hct 36.8 (35.3-44.9) % MCV 90.4 (83.0-100.0) fL MCH 29.2 (28.0-33.3) pg MCHC 32.3 (31.6-35.5) g/dL RDW 13.5 (11.5-14.5) % Plt Count 316 (140-400) K/mcL MPV 9.2 L (9.4-12.4) fL Immature Gran % 1.0 (0-4) % Seg Neutrophils % 63.2 % Lymphocytes % 27.0 % Monocytes % 6.7 % Eosinophils % 1.6 % Basophils % 0.5 % Neutrophils # 13.5 H (1.6-8.9) K/mcL Lymphocytes # 5.8 H (0.6-4.6) K/mcL Monocytes # 1.4 H (0.0-1.3) K/mcL Eosinophils # 0.3 (0.0-0.6) K/mcL Basophils # 0.1 (0.0-0.2) K/mcL Sodium 141 (136-145) mEq/L Potassium 3.5 (3.5-5.1) mEq/L Chloride 105 (98-107) mEq/L Carbon Dioxide 27 (23-29) mEq/L BUN 18 (6-20) mg/dL Creatinine 0.70 (0.60-1.20) mg/dL Est GFR ( Amer) > 60 (> 60) Est GFR (Non-Af Amer) > 60 (> 60) BUN/Creatinine Ratio 26 (6-26) Glucose 51 L (70-105) mg/dL Calculated Osmolality 291 (280-300) Lactic Acid (0.5-2.2) mmol/L Calcium 9.7 (8.6-10.3) mg/dL Urine Color [place] A (Yellow) Urine Clarity Cloudy A (Clear) Urine pH 6.0 (5.0-8.0) pH Units Ur Specific [place] 1.025 (1.010-1.025) Urine Protein 100 H (Neg-Trace) mg/dL Urine Glucose (UA) Normal (Normal) mg/dL Urine Ketones Negative (Negative) mg/dL Urine Blood Large H (Negative) Urine Nitrite Positive A (Negative) Urine Bilirubin Negative (Negative) Urine Urobilinogen Normal (Normal) mg/dL Ur Leukocyte Esterase Large H (Negative) Urine Microscopic RBC TNTC H (0-3) per hpf Urine Microscopic WBC 15-30 H (0-3) per hpf Ur Squamous Epith Cells Many H (None-Few) per lpf Urine Bacteria None Seen (None-Few) per hpf Hyaline Casts None Seen (None-Few) per lpf Ur Culture Indicated? YES A (NO) 01/19/19 Range/Units 20:18 WBC (4.3-11.1) K/mcL RBC (3.82-4.97) M/mcL Hgb (11.5-15.4) g/dL Hct (35.3-44.9) % MCV (83.0-100.0) fL MCH (28.0-33.3) pg MCHC (31.6-35.5) g/dL RDW (11.5-14.5) % Plt Count (140-400) K/mcL MPV (9.4-12.4) fL Immature Gran % (0-4) % Seg Neutrophils % % Lymphocytes % % Monocytes % % Eosinophils % % Basophils % % Neutrophils # (1.6-8.9) K/mcL Lymphocytes # (0.6-4.6) K/mcL Monocytes # (0.0-1.3) K/mcL Eosinophils # (0.0-0.6) K/mcL Basophils # (0.0-0.2) K/mcL Sodium (136-145) mEq/L Potassium (3.5-5.1) mEq/L Chloride (98-107) mEq/L Carbon Dioxide (23-29) mEq/L BUN (6-20) mg/dL Creatinine (0.60-1.20) mg/dL Est GFR ( Amer) (> 60) Est GFR (Non-Af Amer) (> 60) BUN/Creatinine Ratio (6-26) Glucose (70-105) mg/dL Calculated Osmolality (280-300) Lactic Acid 1.0 (0.5-2.2) mmol/L Calcium (8.6-10.3) mg/dL Urine Color (Yellow) Urine Clarity (Clear) Urine pH (5.0-8.0) pH Units Ur Specific [place] (1.010-1.025) Urine Protein (Neg-Trace) mg/dL Urine Glucose (UA) (Normal) mg/dL Urine Ketones (Negative) mg/dL Urine Blood (Negative) Urine Nitrite (Negative) Urine Bilirubin (Negative) Urine Urobilinogen (Normal) mg/dL Ur Leukocyte Esterase (Negative) Urine Microscopic RBC (0-3) per hpf Urine Microscopic WBC (0-3) per hpf Ur Squamous Epith Cells (None-Few) per lpf Urine Bacteria (None-Few) per hpf Hyaline Casts (None-Few) per lpf Ur Culture Indicated? (NO) Attestation Statement - Attestation Attestation: I have seen this patient with the resident physician, I have personally evaluated this patient. I had reviewed the chart and document dictation by the resident physician and aM in agreement with the information documented by the resident physician. Please see documentation by the resident physician for c omplete chart including past medical history, family medical history, review of systems, current history and physical and laboratory and imaging studies. I was present for all procedures, provided direct supervision for all procedures, was present for the entirety of all procedures and provided direct guidance during the procedures. Please see documentation by the resident physician for any procedures performed. I have reviewed all interpretations of EKGs, and reviewed all EKGs performed on patient's as well. I have also reviewed reports of imaging as provided by radiology. Patient presented with persistent and intractable flank pain after just recent having been admitted for infected stone, she had left prior to the wishes of the admitting service but presents with worsening symptoms. She is on antibiotics but reports she did not have anything for pain. Patient had a persistent leukocytosis, persistent evidence for UTI, renal panel within acceptable limits apart from hypoglycemia, patient was able to tolerate by mouth food and fluids for this. She was given IV pain medication IV antibiotics and IV fluids and was admitted for further evaluation and management.
[2019-01-19] MEDS ORDERED: cefTRIAXone 2,000 MG in Water for inj. (sterile) 20 ML IVP ONE (21:27)
[2019-01-19] MEDS ORDERED: 0.9 % Sodium Chloride 1,000 ML IVC ONE ×2 (21:56→22:33)
[2019-01-19] MEDS ORDERED: *HR* Dextrose 50 % in Water (Syg) 50 ML SYRINGE IVP PRN (22:34)
[2019-01-19] MEDS ORDERED: Naloxone 0.4 MG/ML INJ IVP PRN (22:34)
[2019-01-19] MEDS ORDERED: Dextrose Gel 15 GM/37.5 ML TUBE PO PRN ×2 (22:34)
--- NOTE | 2019-01-19 23:04 | Internal Med History&Physical ---
Date of Encounter: 01/19/19 Time of Encounter: 23:03 Internal Medicine - H&P: HPI Chief complaint: flank pain Admitted From: Home Plans for Post Hospital Care: Home History of present illness: Keke Hoyos is a 53-year-old obese woman with diabetes and recurrent nephrolithiasis who was admitted here 24 hours ago upon transfer from [place] where she had presented to with worsening abdominal and left flank pain with radiation to her groin and found to have an obstructive stone causing hydroneph rosis with notable leukocytosis and Tachycardia consistent with sepsis syndrome. She was admitted to our ICU and emergently taken to for by Dr. Singleton for cystoscopy, left retrograde ureteral pyelography and ureteral double-J stent placement. He asked to be discharged later on in the day because she felt better and requested oral antibiotics even though she was advised against such. 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 She reported a temperature of 101F. On arrival here she remains tachycardic but afebrile. Lab work reveals persistent leukocytosis and a remarkable UA. She is admitted for further care. Vitals: Reviewed General: Skin: HEENT: Moist mucous membranes. No conjunctivae pallor. Neck: No lymphadenopathy. No JVD. No carotid bruits. No palpable thyroid. Chest: Normal thoracic expansion. Normal breath sounds. Clear to auscultation. Heart: Normal S1 & S2; rhythmic. No rubs or murmurs. Abdomen: Non-distended, soft and non-tender to palpation. No peritoneal reaction. Extremities: No clubbing, cyanosis or edema. No calf tenderness. Normal distal pulses. Neurological: Awake, alert and oriented to person, place and time. No focal deficits. Psych: Affect appropriate. Assessment/Plan 1. Sepsis secondary to complicated pyelonephritis: She is seen to have a GNR growing in her urine; need to ensure she is not bacteremic as well. Will keep her on ceftriaxone 1gr daily empirically pending finalization of culture data and normalization of her inflammatory markers. 2. Left hydronephrosis: Secondary to a 6.5 x 4 mm left proximal ureteral calculus now status post urinary diversion surgery with ureteral stent placement. Last recommendation by urology is that she follow-up with them as an outpatient for definitive management once the infection is resolved. 3. Diabetes: We will place her on insulin sliding scale for now. 4. DVT prophylaxis: SubQ heparin ordered. Past Med Surg Social Fam HX - Past Medical History Medical history: diabetes, hypertension Additional medical history: Kidney Stone, Fibromyalgia Psychiatric history: depression - Past Surgical History Surgical History: ureteral stent - Social History Smoking Status: Never smoker Smokeless Tobacco Status: No Alcohol use: none Drug use: none - Family History Mother Living Status: Hx Family Cardiac Disorders: No Hx Family Respiratory Disorders: No Hx Family Cancer: Yes Father Living Status: Hx Family Cancer: Yes Daughter Living Status: Still Living Internal Medicine - H&P: Meds Cefdinir [Omnicef] 300 mg PO BID 10 Days #20 capsule 01/18/19 [Rx] Phenazopyridine HCl [Pyridium] 200 mg PO TIDAC 4 Days #12 tab 01/18/19 [Rx] Duloxetine HCl [Cymbalta] 60 mg PO BID 01/19/19 [History] Exenatide Microspheres [Bydureon Pen] 2 mg SQ MO 01/19/19 [History] Gabapentin [Neurontin] 600 mg PO TID 01/19/19 [History] Ibuprofen 800 mg PO TID 01/19/19 [History] Lansoprazole [Prevacid] 30 mg PO DAILY 01/19/19 [History] Losartan Potassium [Cozaar] 100 mg PO DAILY 01/19/19 [History] Metoprolol Tartrate [Lopressor] 50 mg PO BID 01/19/19 [History] Oxybutynin [Ditropan] 5 mg PO TID 01/19/19 [History] Tamsulosin HCl [Flomax] 0.4 mg PO BID 01/19/19 [History] Tizanidine HCl [Zanaflex] 8 mg PO HS 01/19/19 [History] Tramadol HCl [Ultram] 100 mg PO TID PRN 01/19/19 [History] Allergy/AdvReac Type Severity Reaction Status Date / Time No Known Allergies Allergy Verified 01/19/19 19:01 All Systems PM: A 10-system review of systems was performed and is negative for pertinent findings except as documented above in the HPI. - Constitutional Vitals: Temp Pulse Resp BP Pulse Ox 98.2 F 109 17 159/81 99 01/19/19 19:19 01/19/19 21:21 01/19/19 21:21 01/19/19 21:21 01/19/19 21:21 Exam: . Internal Med - H&P Results - Labs CBC & Chem 7: 01/19/19 20:18 01/19/19 20:18 Labs: Short CBC 01/19/19 Range/Units 20:18 WBC 21.3 H (4.3-11.1) K/mcL Hgb 11.9 (11.5-15.4) g/dL Hct 36.8 (35.3-44.9) % Plt Count 316 (140-400) K/mcL Neutrophils # 13.5 H (1.6-8.9) K/mcL BMP 01/19/19 20:18 Sodium 141 Potassium 3.5 Chloride 105 Carbon Dioxide 27 BUN 18 Creatinine 0.70 Glucose 51 L Calcium 9.7 Urine 01/19/19 Range/Units 19:09 Urine Color [place] A (Yellow) Urine Clarity Cloudy A (Clear) Urine pH 6.0 (5.0-8.0) pH Units Ur Specific [place] 1.025 (1.010-1.025) Urine Protein 100 H (Neg-Trace) mg/dL Urine Glucose (UA) Normal (Normal) mg/dL - Time Spent With Patient Total time spent is greater than 50% in coordination of care (as documented) at patient's floor/unit and/or counseling patient: Greater than 35 minutes
[2019-01-20] MEDS: tiZANidine 4 MG TABLET PO SCH ×2 (00:21→21:28)
[2019-01-20] MEDS: 0.9 % Sodium Chloride 1,000 ML IVC SCH ×2 (01:37→06:30)
[2019-01-20] MEDS: traMADol 50 MG TABLET PO PRN ×3 (04:47→21:33)
[2019-01-20] MEDS: *HR* Heparin 5,000 UNIT/ML VIAL SQ SCH ×2 (05:12→17:41)
[2019-01-20 05:43] LABS: Basophils # 0.1 K/mcL (0.0-0.2); Basophils % 0.5 %; Eosinophils # 0.4 K/mcL (0.0-0.6); Eosinophils % 2.3 %; Hematocrit 33.5 % (35.3-44.9); Hemoglobin 10.5 g/dL (11.5-15.4); Immature Granulocytes % 0.7 % (0-4); Lymphocytes # 4.2 K/mcL (0.6-4.6); Lymphocytes % 24.8 %; Mean Corpuscular HGB Conc 31.3 g/dL (31.6-35.5); Mean Corpuscular Hemoglobin 28.6 pg (28.0-33.3); Mean Corpuscular Volume 91.3 fL (83.0-100.0); Mean Platelet Volume 9.5 fL (9.4-12.4); Monocytes # 1.1 K/mcL (0.0-1.3); Monocytes % 6.5 %; Platelet Count 261 K/mcL (140-400); Red Blood Count 3.67 M/mcL (3.82-4.97); Red Cell Distribution Width 13.4 % (11.5-14.5); Segmented Neutrophils % 65.2 %; White Blood Count 16.8 K/mcL (4.3-11.1)
[2019-01-20 05:55] LABS: BUN/Creatinine Ratio 23 (6-26); Blood Urea Nitrogen 15 mg/dL (6-20); Calcium 8.7 mg/dL (8.6-10.3); Carbon Dioxide 25 mEq/L (23-29); Chloride 106 mEq/L (98-107); Glucose 122 mg/dL (70-105); Osmolality,Calculated 296 (280-300); Sodium 142 mEq/L (136-145); eGFR For African Americans > 60 (> 60); eGFR For Non-African Americans > 60 (> 60)
[2019-01-20] MEDS: cefTRIAXone 1,000 MG in Water for inj. (sterile) 10 ML IVPB SCH (07:18)
[2019-01-20] MEDS: Gabapentin 300 MG CAPSULE PO SCH ×3 (07:21→21:30)
[2019-01-20] MEDS: *HR* OxyCODONE Immed Rel 5 MG TABLET PO PRN ×2 (07:23→15:40)
--- NOTE | 2019-01-20 08:45 | Internal Med Progress Note ---
Hospitalist Progress Note - Encounter Date of Encounter: 01/20/19 Time of Encounter: 08:45 - Subjective Interval History: No acute events overnight - Exam Vitals: Temp Pulse Resp BP Pulse Ox 98.9 F 75 14 143/85 96 01/20/19 07:31 01/20/19 07:31 01/20/19 07:31 01/20/19 07:31 01/20/19 07:31 Exam: General appearance: Present: A&O X 3, no acute distress Head exam: Present: normocephalic Respiratory exam: Present: CTAB. Absent: accessory muscle use, rales, rhonchi, wheezes Cardiovascular exam: Present: RRR, +S1, +S2. Absent: diastolic murmur, gallop, rubs, systolic murmur GI/Abdominal exam: Soft, NT, ND, +BS Extremities exam: Absent: pedal edema Neurological exam: Present: alert, oriented X3, no focal deficits. Absent: altered - Assessment and Plan (1) Pyelonephritis Current Visit: Yes Status: Acute Assessment and Plan: Pt comes in wiht fevers and leukocytosisi with acute pyelonephritis. Recently had a stent placed Urine cultures positive for E. coli. On Iv ceftriaxone (2) Sepsis Current Visit: Yes Status: Acute Assessment and Plan: See #1. Continue ceftriaxone. Follwo up blood and urine cultures (3) Ureterolithiasis Current Visit: Yes Status: Acute Assessment and Plan: s/p recent stent placement by urology on 01/17. Patient reports leaving the hospital too early Urology consulted (4) Diabetes Current Visit: Yes Status: Chronic Assessment and Plan: Continue insulin and monitor fingersticjs (5) Morbid obesity Current Visit: Yes Status: Acute Assessment and Plan: Diet and exercise (6) DVT prophylaxis Current Visit: Yes Status: Acute Assessment and Plan: Heparin sc - Time Spent with Patient Total time spent is greater than 50% in coordination of care (as documented) at patient's floor/unit and/or counseling patient: Internal Medicine: Result - Labs CBC & Chem 7: 01/20/19 05:22 01/20/19 05:22 Labs: Short CBC 01/19/19 01/20/19 Range/Units 20:18 05:22 WBC 21.3 H 16.8 H (4.3-11.1) K/mcL Hgb 11.9 10.5 L (11.5-15.4) g/dL Hct 36.8 33.5 L (35.3-44.9) % Plt Count 316 261 (140-400) K/mcL Neutrophils # 13.5 H 11.0 H (1.6-8.9) K/mcL BMP 01/19/19 01/20/19 20:18 05:22 Sodium 141 142 Potassium 3.5 4.0 Chloride 105 106 Carbon Dioxide 27 25 BUN 18 15 Creatinine 0.70 0.64 Glucose 51 L 122 H Calcium 9.7 8.7 Urine 01/19/19 Range/Units 19:09 Urine Color [place] A (Yellow) Urine Clarity Cloudy A (Clear) Urine pH 6.0 (5.0-8.0) pH Units Ur Specific [place] 1.025 (1.010-1.025) Urine Protein 100 H (Neg-Trace) mg/dL Urine Glucose (UA) Normal (Normal) mg/dL Consult Discharge Plan - Plan Referrals: Lissa Helm, [employer] [Primary Care Provider] - (2) Sepsis Qualifiers: Sepsis type: sepsis due to unspecified organism Qualified Code(s): A41.9 - Sepsis, unspecified organism (4) Diabetes Qualifiers: Diabetes mellitus type: type 2 Diabetes mellitus intermediate insulin use: without ent consultant use Diabetes mellitus complication status: without complication Qualified Code(s): E11.9 - Type 2 diabetes mellitus without complications
--- NOTE | 2019-01-20 15:19 | Urology - Consult Note ---
Date of Encounter: 01/20/19 Time of Encounter: 15:18 - Assessment and Plan (1) Pyelonephritis Current Visit: Yes Status: Acute Assessment and plan: Patient is a 53-year-old female who presents 2 days status post cystoscopy, left retropyelogram and left ureteral stent placement with intractable left flank pain and fever. Currently, vital signs are stable and afebrile. White blood cell count has improved from 21.3-16.8. Renal function is well within normal range and reassuring. Urine culture is positive for Escherichia coli, and patient is receiving IV Rocephin. We will plan to continue with IV antibiotics and pain control. Patient is not tolerating ureteral stent very well, and she states she previously has not tolerated stents well in the past. I explained the indwelling ureteral stent is necessary until patient's infection has cleared and until stone extraction is performed. Stone extraction will proceed as a staged procedure after patient's infection is cleared. Urology recommends an additional 14 days of culture sensitive antibiotic such as Bactrim DS or Levaquin that has significant renal tissue penetration. (2) Ureterolithiasis Current Visit: Yes Status: Acute Assessment and plan: Patient is a 53-year-old female who presents with a 6.5 x 4 mm left proximal ureteral stone. She has indwelling left ureteral stent, and she will be scheduled for an outpatient stage stone extraction procedure within 1-2 weeks after urinary tract infection is cleared. Urology CN:HPI Consult date: 01/20/19 Reason for consult Urology: Other (flank pain) Requesting physician: Bhavana Fiore History of present illness: Patient is a 53-year-old female who presents with left flank pain and fever. Patient underwent Cystoscopy, left retrograde ureteropyelography, left ureteral double-J stent placement [address] Singleton. Patient initially presented to the emergency department on 01/18/2019 with a 6.5 x 4 mm left proximal ureteral stone and hydronephrosis. At that time, patient's white blood cell count was elevated to 22, and patient was experiencing febrile illness to 102F degrees. Patient underwent ureteral stent placement, IV fluid resuscitation, IV antibiotics, and she was discharged with oral Omnicef. Patient's urine culture is positive for Escherichia coli, resistant to ampicillin. Patient reports she felt well postoperatively and was compliant with oral Omnicef. Patient states she experienced a fever to 100F degrees at home and was unable to tolerate indwelling ureteral stent. Patient presented back to the emergency department with intractable pain. Currently, patient is lying in bed in no apparent distress, and she denies any chest pain, dyspnea, fever or chills. Past Med Surg Social Fam HX - Past Medical History Medical history: diabetes, hypertension Additional medical history: Kidney Stone, Fibromyalgia Psychiatric history: depression - Past Surgical History Surgical History: appendectomy, cholecystectomy, hysterectomy, ureteral stent Additional surgical history: right knee replacement, bilateral tarsal tunnel takedown, tonsilectomy - Social History Smoking Status: Never smoker Smokeless Tobacco Status: No Alcohol use: rarely Drug use: none - Family History Mother Living Status: Hx Family Cardiac Disorders: No Hx Family Respiratory Disorders: No Hx Family Cancer: Yes (lung cancer) Father Living Status: Hx Family Cancer: Yes (colon cancer) Daughter Living Status: Still Living Medications and Allergies Cefdinir [Omnicef] 300 mg PO BID 10 Days #20 capsule 01/18/19 [Rx] Phenazopyridine HCl [Pyridium] 200 mg PO TIDAC 4 Days #12 tab 01/18/19 [Rx] Duloxetine HCl [Cymbalta] 60 mg PO BID 01/19/19 [History] Gabapentin [Neurontin] 600 mg PO TID 01/19/19 [History] Ibuprofen 800 mg PO TID 01/19/19 [History] Lansoprazole [Prevacid] 30 mg PO DAILY 01/19/19 [History] Losartan Potassium [Cozaar] 100 mg PO DAILY 01/19/19 [History] Oxybutynin [Ditropan] 5 mg PO TID 01/19/19 [History] Tamsulosin HCl [Flomax] 0.4 mg PO BID 01/19/19 [History] Tizanidine HCl [Zanaflex] 8 mg PO HS 01/19/19 [History] Tramadol HCl [Ultram] 100 mg PO TID PRN 01/19/19 [History] Cholecalciferol (D-3) [Vitamin D] 5,000 unit PO DAILY 01/20/19 [History] Diclofenac Sodium 1 applic TP TID PRN 01/20/19 [History] Exenatide Microspheres [Bydureon Bcise] 2 mg SQ MO 01/20/19 [History] Magnesium 400 mg PO QPM 01/20/19 [History] Metoprolol [Lopressor] 25 mg PO BID 01/20/19 [History] Nystatin 1 applic TP BID PRN 01/20/19 [History] Promethazine [Phenergan] 25 mg PO DAILY PRN 01/20/19 [History] SUMAtriptan succinate [Imitrex] 50 mg PO AD PRN 01/20/19 [History] Vitamin B Complex/Folic Acid [B-Complex Tablet] 1 tab PO DAILY 01/20/19 [History] Allergy/AdvReac Type Severity Reaction Status Date / Time No Known Allergies Allergy Verified 01/19/19 19:01 Review of Systems - Constitutional fatigue, no chills, no fever(s) - EENT Nose, mouth and throat: no dizziness, no headache(s) - Cardiovascular no chest pain, no diaphoresis, no dyspnea - Respiratory no cough, no dyspnea - Gastrointestinal abdominal pain, nausea, no vomiting - Genitourinary Genitourinary: dysuria, flank pain, urinary frequency, urinary urgency, no difficulty voiding, no urinary hesitancy, no urinary incontinence - Musculoskeletal back pain, no muscle weakness - Integumentary no erythema, no rash - Neurological no confusion, no syncope - Psychiatric no anxiety, no confusion - Hematologic/Lymphatic no easy bleeding, no easy bruising - Allergic/Immunologic no throat swelling, no wheezing Exam Initial Vital Signs Temp Pulse Resp BP Pulse Ox 98.2 F 105 16 163/96 96 01/19/19 19:01 01/19/19 19:01 01/19/19 19:01 01/19/19 19:01 01/19/19 19:01 - General physical appearance Present: well developed, no distress, no pain - Eyes Present: PERRL, normal ocular movement - ENT Present: normal nares, no hearing loss, no congestion - Neck Present: no masses, trachea midline, no lymphadenopathy - Respiratory Present: normal respiratory effort - Cardiovascular Cardiovascular exam IM: RRR - Abdomen Abdomen: Present: soft, non tender. Absent: distended - Genitourinary Present: other (left cvat) - Integumentary Present: no rash, no abnormal pigmentation - Neurologic Present: normal coordination - Musculoskeletal Present: other (Normal posture) Urology Results - Labs 01/20/19 05:22 01/20/19 05:22 Abnormal lab results WBC 16.8 K/mcL (4.3-11.1) H 01/20/19 05:22 RBC 3.67 M/mcL (3.82-4.97) L 01/20/19 05:22 Hgb 10.5 g/dL (11.5-15.4) L 01/20/19 05:22 Hct 33.5 % (35.3-44.9) L 01/20/19 05:22 MCHC 31.3 g/dL (31.6-35.5) L 01/20/19 05:22 MPV 9.2 fL (9.4-12.4) L 01/19/19 20:18 11.0 K/mcL (1.6-8.9) H 01/20/19 05:22 5.8 K/mcL (0.6-4.6) H 01/19/19 20:18 1.4 K/mcL (0.0-1.3) H 01/19/19 20:18 Glucose 122 mg/dL (70-105) H 01/20/19 05:22 POC Glucose 60 mg/dL (70-99) L 01/20/19 00:07 [place] (Yellow) A 01/19/19 19:09 Cloudy (Clear) A 01/19/19 19:09 100 mg/dL (Neg-Trace) H 01/19/19 19:09 Large (Negative) H 01/19/19 19:09 Positive (Negative) A 01/19/19 19:09 Ur Leukocyte Esterase Large (Negative) H 01/19/19 19:09 TNTC per hpf (0-3) H 01/19/19 19:09 15-30 per hpf (0-3) H 01/19/19 19:09 Ur Squamous Epith Cells Many per lpf (None-Few) H 01/19/19 19:09 Ur Culture Indicated? YES (NO) A 01/19/19 19:09 Diabetes panel 01/19/19 01/20/19 Range/Units 20:18 05:22 Sodium 141 142 (136-145) mEq/L Potassium 3.5 4.0 (3.5-5.1) mEq/L Chloride 105 106 (98-107) mEq/L Carbon Dioxide 27 25 (23-29) mEq/L BUN 18 15 (6-20) mg/dL Creatinine 0.70 0.64 (0.60-1.20) mg/dL Glucose 51 L 122 H (70-105) mg/dL Calcium 9.7 8.7 (8.6-10.3) mg/dL Calcium panel 01/19/19 01/20/19 Range/Units 20:18 05:22 Calcium 9.7 8.7 (8.6-10.3) mg/dL Pituitary panel 01/19/19 01/20/19 Range/Units 20:18 05:22 Sodium 141 142 (136-145) mEq/L Potassium 3.5 4.0 (3.5-5.1) mEq/L Chloride 105 106 (98-107) mEq/L Carbon Dioxide 27 25 (23-29) mEq/L BUN 18 15 (6-20) mg/dL Creatinine 0.70 0.64 (0.60-1.20) mg/dL Glucose 51 L 122 H (70-105) mg/dL Calcium 9.7 8.7 (8.6-10.3) mg/dL Adrenal panel 01/19/19 01/20/19 Range/Units 20:18 05:22 Sodium 141 142 (136-145) mEq/L Potassium 3.5 4.0 (3.5-5.1) mEq/L Chloride 105 106 (98-107) mEq/L Carbon Dioxide 27 25 (23-29) mEq/L BUN 18 15 (6-20) mg/dL Creatinine 0.70 0.64 (0.60-1.20) mg/dL Glucose 51 L 122 H (70-105) mg/dL Calcium 9.7 8.7 (8.6-10.3) mg/dL All other labs normal. Consult Discharge Plan - Plan Referrals: Lissa Helm, SUPERVISOR [employer]ING [Primary Care Provider] -
[2019-01-20] MEDS ORDERED: Ondansetron 4 MG/2 ML VIAL IVP ONE (19:22)
[2019-01-21] MEDS: *HR* Heparin 5,000 UNIT/ML VIAL SQ SCH (05:05)
[2019-01-21 05:30] LABS: Basophils # 0.1 K/mcL (0.0-0.2); Basophils % 0.6 %; Eosinophils # 0.5 K/mcL (0.0-0.6); Eosinophils % 3.6 %; Hematocrit 34.1 % (35.3-44.9); Hemoglobin 10.7 g/dL (11.5-15.4); Immature Granulocytes % 0.6 % (0-4); Lymphocytes # 3.6 K/mcL (0.6-4.6); Lymphocytes % 26.3 %; Mean Corpuscular HGB Conc 31.4 g/dL (31.6-35.5); Mean Corpuscular Hemoglobin 28.6 pg (28.0-33.3); Mean Corpuscular Volume 91.2 fL (83.0-100.0); Mean Platelet Volume 9.3 fL (9.4-12.4); Monocytes # 0.8 K/mcL (0.0-1.3); Monocytes % 5.6 %; Neutrophils # 8.6 K/mcL (1.6-8.9); Platelet Count 256 K/mcL (140-400); Red Blood Count 3.74 M/mcL (3.82-4.97); Red Cell Distribution Width 13.2 % (11.5-14.5); Segmented Neutrophils % 63.3 %; White Blood Count 13.5 K/mcL (4.3-11.1)
[2019-01-21 05:51] LABS: BUN/Creatinine Ratio 21 (6-26); Blood Urea Nitrogen 15 mg/dL (6-20); Calcium 9.5 mg/dL (8.6-10.3); Carbon Dioxide 29 mEq/L (23-29); Chloride 99 mEq/L (98-107); Glucose 175 mg/dL (70-105); Osmolality,Calculated 291 (280-300); Phosphorous 3.9 mg/dL (2.7-4.5); Potassium 3.9 mEq/L (3.5-5.1); Sodium 138 mEq/L (136-145); eGFR For African Americans > 60 (> 60); eGFR For Non-African Americans > 60 (> 60)
[2019-01-21] MEDS: cefTRIAXone 1,000 MG in Water for inj. (sterile) 10 ML IVPB SCH (09:36)
[2019-01-21] MEDS: Gabapentin 300 MG CAPSULE PO SCH (09:37)
--- NOTE | 2019-01-21 09:39 | Urology Progress Note ---
Date of Encounter: 01/21/19 Time of Encounter: 09:00 - Assessment and Plan (1) Pyelonephritis Current Visit: Yes Status: Acute Assessment and plan: Patient is a 53-year-old female who presents with an Escherichia coli urinary tract infection and left proximal ureteral stone. Patient is 3 days status post cystoscopy, left retrograde pyelogram and left ureteral stent placement with Dr. Singleton. Vital signs are stable and afebrile. Patient has remained afebrile throughout his hospital stay, and white blood cell count is trending down to 13.5. Repeat urine culture is negative. Renal function is well within normal range and reassuring. Patient is receiving IV Rocephin. Urology recommends an additional 14 days of Bactrim DS or Levaquin outpatient. (2) Ureterolithiasis Current Visit: Yes Status: Acute Assessment and plan: Patient is a 53-year-old female who presents with a 6.5 x 4 mm left proximal ureteral stone. Patient is 3 days status post left ureteral stent placement, and she has an upcoming appointment scheduled 01/27/2019, with Dr. Singleton to discuss surgical planning for definitive stone extraction. Progress Note Subjective: no new complaints, feels better Narrative: Patient seen and examined sitting upright in bed in no apparent distress. Patient reports she is feeling much better today. Patient denies any fever, chills, flank pain. Patient states she is tolerating the indwelling stent better today. Objective Initial Vital Signs Temp Pulse Resp BP Pulse Ox 98.2 F 105 16 163/96 96 01/19/19 19:01 01/19/19 19:01 01/19/19 19:01 01/19/19 19:01 01/19/19 19:01 - General physical appearance Present: well developed, no distress, no pain - Respiratory Present: normal expansion, normal respiratory effort - Abdomen Present: soft, non tender. Absent: distended - Genitourinary Urine Appearance: Present: Clear - Integumentary Present: no rash, no abnormal pigmentation - Musculoskeletal Present: normal posture - Psychiatric Present: oriented to time, oriented to person, oriented to place, speech is normal, memory intact - Labs 01/21/19 04:54 01/21/19 04:54 Diabetes panel 01/21/19 Range/Units 04:54 Sodium 138 (136-145) mEq/L Potassium 3.9 (3.5-5.1) mEq/L Chloride 99 (98-107) mEq/L Carbon Dioxide 29 (23-29) mEq/L BUN 15 (6-20) mg/dL Creatinine 0.72 (0.60-1.20) mg/dL Glucose 175 H (70-105) mg/dL Calcium 9.5 (8.6-10.3) mg/dL Calcium panel 01/21/19 Range/Units 04:54 Calcium 9.5 (8.6-10.3) mg/dL Phosphorus 3.9 (2.7-4.5) mg/dL Pituitary panel 01/21/19 Range/Units 04:54 Sodium 138 (136-145) mEq/L Potassium 3.9 (3.5-5.1) mEq/L Chloride 99 (98-107) mEq/L Carbon Dioxide 29 (23-29) mEq/L BUN 15 (6-20) mg/dL Creatinine 0.72 (0.60-1.20) mg/dL Glucose 175 H (70-105) mg/dL Calcium 9.5 (8.6-10.3) mg/dL Adrenal panel 01/21/19 Range/Units 04:54 Sodium 138 (136-145) mEq/L Potassium 3.9 (3.5-5.1) mEq/L Chloride 99 (98-107) mEq/L Carbon Dioxide 29 (23-29) mEq/L BUN 15 (6-20) mg/dL Creatinine 0.72 (0.60-1.20) mg/dL Glucose 175 H (70-105) mg/dL Calcium 9.5 (8.6-10.3) mg/dL Consult Discharge Plan - Plan Referrals: Lissa Helm, [employer] ROBOTICIST [Primary Care Provider] -
[2019-01-21] MEDS: traMADol 50 MG TABLET PO PRN (09:46)
[2019-01-21 10:14] VITALS: BP 150/90
--- NOTE | 2019-01-21 10:49 | Discharge Summary ---
- NOTES TO OUTPATIENT PROVIDER Notes to Outpatient Provider: Patient hospitalized for sepsis due to acute pyelonephritis. She recently had a left ureteral stent placed for ureterolithiasis. Urine cultures from then are positive for Escherichia coli. Repeat urine cultures and blood cultures are negative currently. Patient is doing much better and is stable to be discharged home on oral antibiotics. She will follow up with urology for further management Orders not resulted at time of discharge: Pending orders 01/20/19 05:22 Culture,Blood [BC] Routine 01/22/19 04:00 Basic Metabolic Panel AM 0400 CBC [Complete Blood Count] [HEME] AM 0400 Magnesium AM 0400 Phosphorous AM 0400 01/23/19 04:00 Basic Metabolic Panel AM 0400 CBC [Complete Blood Count] [HEME] AM 0400 Magnesium AM 0400 Phosphorous AM 0400 01/24/19 04:00 Basic Metabolic Panel AM 0400 CBC [Complete Blood Count] [HEME] AM 0400 Magnesium AM 0400 Phosphorous AM 0400 01/25/19 04:00 Basic Metabolic Panel AM 0400 CBC [Complete Blood Count] [HEME] AM 0400 Magnesium AM 0400 Phosphorous AM 0400 01/26/19 04:00 Basic Metabolic Panel AM 0400 CBC [Complete Blood Count] [HEME] AM 0400 Magnesium AM 0400 Phosphorous AM 0400 Date of Encounter: 01/21/19 Time of Encounter: 10:44 - Discharge Diagnosis (1) Sepsis Priority: Primary Status: Acute Qualifiers: Sepsis type: Escherichia coli Qualified Code(s): A41.51 - Sepsis due to Escherichia coli [E. coli] (2) Ureterolithiasis Priority: Secondary Status: Acute (3) Pyelonephritis Priority: Secondary Status: Acute (4) Diabetes Priority: Secondary Status: Chronic Qualifiers: Diabetes mellitus type: type 2 Diabetes mellitus residential insulin use: without button broacher use Diabetes mellitus complication status: without complication Qualified Code(s): E11.9 - Type 2 diabetes mellitus without complications (5) DVT prophylaxis Priority: Secondary Status: Acute (6) Morbid obesity Priority: Secondary Status: Acute Hospital course: Ms. Hoyos is a 53 year old female Patient hospitalized for sepsis due to acute pyelonephritis. She recently had a left ureteral stent placed for ureterolithiasis. Urine cultures from then are positive for Escherichia coli. Repeat urine cultures and blood cultures are negative currently. Patient is doing much better and is stable to be discharged home on oral antibiotics. She will follow up with urology for further management. Urology recommends 14 day course of antibiotics to complete treatment. Patient will be discharged on Levaquin to complete treatment course. Discharge discussed with: patient - Time Spent with Patient Total time spent providing and/or coordinating discharge services: Time spent: Less than 30 minutes (25 min) - Discharge Medications Prescriptions: New levoFLOXacin [Levaquin] 750 mg PO DAILY #12 tablet Lactobacillus Acidophilus [Acidophilus Probiotic] 1 mg PO BID #30 tablet Continued Phenazopyridine HCl [Pyridium] 200 mg PO TIDAC 4 Days #12 tab Oxybutynin [Ditropan] 5 mg PO TID Tizanidine HCl [Zanaflex] 8 mg PO HS Ibuprofen 800 mg PO TID Duloxetine HCl [Cymbalta] 60 mg PO BID Tramadol HCl [Ultram] 100 mg PO TID PRN PRN Reason: Pain Losartan Potassium [Cozaar] 100 mg PO DAILY Lansoprazole [Prevacid] 30 mg PO DAILY Gabapentin [Neurontin] 600 mg PO TID Tamsulosin HCl [Flomax] 0.4 mg PO BID Metoprolol [Lopressor] 25 mg PO BID Exenatide Microspheres [Bydureon Bcise] 2 mg SQ MO SUMAtriptan succinate [Imitrex] 50 mg PO AD PRN PRN Reason: Migraine Headache Nystatin 1 applic TP BID PRN PRN Reason: IRRITATION Diclofenac Sodium 1 applic TP TID PRN PRN Reason: Pain Vitamin B Complex/Folic Acid [B-Complex Tablet] 1 tab PO DAILY Promethazine [Phenergan] 25 mg PO DAILY PRN PRN Reason: Nausea Cholecalciferol (D-3) [Vitamin D] 5,000 unit PO DAILY Magnesium 400 mg PO QPM Discontinued Cefdinir [Omnicef] 300 mg PO BID 10 Days #20 capsule Home Medications: Phenazopyridine HCl [Pyridium] 200 mg PO TIDAC 4 Days #12 tab 01/18/19 [Rx] Duloxetine HCl [Cymbalta] 60 mg PO BID 01/19/19 [History] Gabapentin [Neurontin] 600 mg PO TID 01/19/19 [History] Ibuprofen 800 mg PO TID 01/19/19 [History] Lansoprazole [Prevacid] 30 mg PO DAILY 01/19/19 [History] Losartan Potassium [Cozaar] 100 mg PO DAILY 01/19/19 [History] Oxybutynin [Ditropan] 5 mg PO TID 01/19/19 [History] Tamsulosin HCl [Flomax] 0.4 mg PO BID 01/19/19 [History] Tizanidine HCl [Zanaflex] 8 mg PO HS 01/19/19 [History] Tramadol HCl [Ultram] 100 mg PO TID PRN 01/19/19 [History] Cholecalciferol (D-3) [Vitamin D] 5,000 unit PO DAILY 01/20/19 [History] Diclofenac Sodium 1 applic TP TID PRN 01/20/19 [History] Exenatide Microspheres [Bydureon Bcise] 2 mg SQ MO 01/20/19 [History] Magnesium 400 mg PO QPM 01/20/19 [History] Metoprolol [Lopressor] 25 mg PO BID 01/20/19 [History] Nystatin 1 applic TP BID PRN 01/20/19 [History] Promethazine [Phenergan] 25 mg PO DAILY PRN 01/20/19 [History] SUMAtriptan succinate [Imitrex] 50 mg PO AD PRN 01/20/19 [History] Vitamin B Complex/Folic Acid [B-Complex Tablet] 1 tab PO DAILY 01/20/19 [History] Lactobacillus Acidophilus [Acidophilus Probiotic] 1 mg PO BID #30 tablet 01/21/19 [Rx] levoFLOXacin [Levaquin] 750 mg PO DAILY #12 tablet 01/21/19 [Rx] Allergies/Adverse Reactions: Allergy/AdvReac Type Severity Reaction Status Date / Time No Known Allergies Allergy Verified 01/19/19 19:01 Date of admission: 01/19/19 22:27 Primary care physician: Lissa Helm CNP Consults: 01/19/19 23:33 Consult to Pastoral Services [CONS] Routine Comment: 01/20/19 12:01 Consult to Urology [CONS] Routine Consulting Provider: Ingridy Reema Reason for Consult: pyelonephritis Call Completed: No Discharging clinician: Lee Aguilar Anticipated date of discharge: 01/21/19 - Constitutional Vitals: Temp Pulse Resp BP Pulse Ox 98.1 F 101 15 150/90 93 01/21/19 10:13 01/21/19 10:13 01/21/19 10:13 01/21/19 10:13 01/21/19 10:13 General appearance: Present: cooperative, A&O X 3, pleasant, no acute distress, answers questions appropriately Exam: General: Patient is alert, no acute distress, oriented x 3 Respiratory: Good respiratory effort. Normal breath sounds. No wheezing or crackles. Cardiovascular: Regular rate and rhythm. s1 and s2 normal No clicks, rubs, gallops, or murmurs. No pedal edema Abdomen: Abdomen is soft, nontender. Bowel sounds are present Musculoskeletal: Spontaneously moving all extremities Neuro: Alert oriented x 3 normal cranial nerves, no focal deficits - Patient Status Disposition: Home, Self-Care Condition: Fair Functional capacity at discharge: independent ambulation Overall status at discharge: patient is progressing back to baseline - Discharge Instructions Instructions: Sepsis (DC), Urinary Tract Infection in Women (DC) Follow Up With: Lissa Helm, ENGINEERING AND SCIENTIFIC PROGRAMMER [Primary Care Provider] - (in 1 week) Rashid Singleton [Partnered Physician] - - Diet and Activity Activity: as per physical therapy, increase activity as tolerated Diet: advance to your usual diet
== END 2019-01-21 12:04 | disposition home or self-care (01) ==
LOC: EMEROOARM 18:59 → 3ANU 18:59 → SUATTDRO 22:27 → 3ANU 23:00
PROVIDERS: ADMIT Internal Medicine; ATTEND Internal Medicine